=== PATIENT | male | born 1985 | race Caucasian/White ===

== ENCOUNTER 2017-01-16 22:55 | Emergency (ER) | payer OTHER, MEDICAID ==
[2017-01-16 23:09] VITALS: PULSE 113
[2017-01-16] MEDS ORDERED: NS 1,000 ML IV ONE (23:18)
[2017-01-16] MEDS ORDERED: ONDANSETRON DISINTEGRATING 4 MG TAB PO ONE (23:25)
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
[2017-01-17] MEDS ORDERED: ONDANSETRON 4MG PREPACK#2 BTL TAKEHOME ONE (01:39)
[2017-01-17 02:20] VITALS: BP 99/57; RESP 18; TEMP 99.1; O2SAT 92
== END 2017-01-17 02:19 | disposition home or self-care (01) ==
DX: E86.0 Dehydration (principal); F17.200 Nicotine dependence, unspecified, uncomplicated